=== PATIENT | female | born 1965 | race Asian ===

== ENCOUNTER 2025-01-01 15:32 | Outpatient (CLI) | payer BC, MEDICAID, SELFPAY ==
--- NOTE | 2025-01-01 15:43 | CT_ITS ---
WS: [id number] CT HEAD WITH AND WITHOUT CONTRAST HISTORY: BENIGN MENINGIOMA OF BRAIN TECHNIQUE: Noncontrast 2.5 mm axial images obtained from the vertex to the skull base. Additional imaging performed at 2.5 mm axial images status post IV contrast. Bone and soft tissue windows are reviewed. All CT scans at [facility] use at least one of these dose optimization techniques: automated exposure control; mA and/or kV adjustment per patient size (includes targeted exams where dose is matched to clinical indication); or iterative reconstruction. CONTRAST: Omnipaque 350; 100 mL IV. DLP: 1977.21 mGy.cm COMPARISON: None available. Existing [employer] shunt catheter enters the LEFT parietal bone with catheter tracking anteriorly across the interhemispheric falx. Tip terminates near the anterior horn of the RIGHT lateral ventricle. No hydrocephalus. Area of volume loss in the LEFT cerebellum. There is an additional shunt catheter tracking through the LEFT cerebellum close to the area of encephalomalacia. This catheter proceeds through the foramen magnum inferiorly. The distal extent is not evident. Otherwise brain is well preserved with only mild small vessel disease. No hemorrhage. By history patient has a known meningioma. Meningioma is not identified by CT. There is no enhancing extra-axial mass appreciated. Visualized [place] of [place] and dural venous sinuses are appropriate by CT. Paranasal sinuses as visualized: Clear. Mastoid air cells: Clear. Calvarium and scalp: Large craniectomy over the LEFT occipital bone. There is a jayne hole in the LEFT parietal bone. CT/CT head wo/w con [id number] IMPRESSION: 1. Existing H[employer]PER[employer] shunt catheter enters the LEFT parietal bone with catheter trac catrachita anteriorly across the interhemispheric falx to terminate anterior horn RIG HT lateral ventricle. 2. No hydrocephalus. 3. Shunt catheter proceeds through the LEFT posterior fossa through the forame n magnum. The distal extent is not included. 4. Large area of encephalomalacia involving the LEFT cerebellum. 5. Focally enhancing extra-axial mass not identified. No meningioma identified by CT with any certainty.
[2025-01-01] MEDS: iohexol 350 mg/mL 500 mL Btl (per mL) IV (15:56)
== END 2025-01-01 15:33 | disposition home or self-care (01) ==
LOC: RAD 15:32
PROVIDERS: PCP Nurse Practitioner Family; Visit Provider Nurse Practitioner Family
DX: Z86.011 Personal history of benign neoplasm of the brain (principal); Z96.89 Presence of other specified functional implants; G93.89 Other specified disorders of brain; R93.0 Abnormal findings on diagnostic imaging of skull and head, not elsewhere classified; I67.89 Other cerebrovascular disease; Z98.890 Other specified postprocedural states
CPT/HCPCS: 70470

== ENCOUNTER 2025-02-11 10:25 | Outpatient (CLI) | payer BC, MEDICAID, SELFPAY ==
--- NOTE | 2025-02-11 10:35 | USCV_ITS ---
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7 % LV Ejection Fraction 2C AL 54.6 % LA Diameter 2.7 cm RA Systolic Volume 4C AL 23.4 ml RA Systolic Volume 4C MOD 21.9 ml LA Sys Volume AL 39.1 cm cubed LA Sys Volume Index AL 23.6 cm cubed/m squared Aorta at Sinotubular Diameter 2.8 cm M-MODE LA Ao Ratio MM 1.4 AV Cusp Separation MM 1.8 cm DOPPLER AV Peak Velocity 241.8 cm/s LVOT Peak Velocity 94.0 cm/s AV Area Cont Eq vti 1.4 cm squared AV Area Cont Eq pk 1.3 cm squared MV Area PHT 4.6 cm squared Mitral E to A Ratio 0.9 TR Peak Velocity 136.0 cm/s TR Peak Gradient 7.4 mmHg TV Peak E Velocity 72.0 cm/s PV Peak Velocity 82.0 cm/s FINDINGS Left Ventricle Left ventricle is normal in size. LV systolic function is normal with EF 55 to 60%. No regional wall motion abnormalities are seen. Grade 1 diastolic dysfunction. Right Ventricle Normal in size and function Right Atrium Normal in size Left Atrium Normal in size Mitral Valve Structurally normal mitral valve. Trace mitral regurgitation Aortic Valve Aortic valve is thickened. Mild aortic stenosis with aortic valve area 1.31 cm squared and mean gradient of 13 mmHg Tricuspid Valve Insufficient TR jet to evaluate RVSP. Pulmonic Valve Not well visualized Pericardium Normal Aorta Normal in size IVC Not well visualized CONCLUSIONS LV systolic function is normal with EF of 55-60%. Grade 1 diastolic dysfunction. Trace mitral regurgitation Mild aortic stenosis No comparison studies are available. Guru Gudino MD (Electronically Signed) Final Date: 21 February 2025 21:17 S
== END 2025-02-11 10:26 | disposition home or self-care (01) ==
LOC: RAD 10:25
PROVIDERS: PCP Nurse Practitioner Family; Visit Provider Nurse Practitioner Family
DX: R01.1 Cardiac murmur, unspecified (principal); R93.1 Abnormal findings on diagnostic imaging of heart and coronary circulation; I35.8 Other nonrheumatic aortic valve disorders; I35.0 Nonrheumatic aortic (valve) stenosis
CPT/HCPCS: 93306